=== PATIENT | female | born 1970 | race Caucasian/White ===

== ENCOUNTER 2021-02-16 18:19 | Emergency (ER) | payer BC ==
[2021-02-16] MEDS ORDERED: CEPHALEXIN250 MG PO (19:46)
[2021-02-16 20:20] VITALS: BP 132/78
== END 2021-02-16 20:10 | disposition home or self-care (01) ==
LOC: ED 18:19
DX: S61.412A Laceration without foreign body of left hand, initial encounter (principal); Z23 Encounter for immunization; Z88.0 Allergy status to penicillin; W26.0XXA Contact with knife, initial encounter
CPT/HCPCS: 90715